=== PATIENT | female | born 1975 | race Caucasian/White ===

== ENCOUNTER 2019-08-31 14:01 | Emergency (ER) | payer SELFPAY ==
[~2019-08-31] VITALS: Ht 167.6 cm; Wt 86.2 kg
[2019-08-31 14:09] VITALS: BP 98/66; Ht 167.6 cm; Wt 86.2 kg
== END 2019-08-31 15:01 | disposition home or self-care (01) ==
LOC: ED 14:01
DX: M54.9 Dorsalgia, unspecified (principal); H92.03 Otalgia, bilateral; Z98.890 Other specified postprocedural states
CPT/HCPCS: J1885